=== PATIENT | male | born 1970 | race Caucasian/White ===

== ENCOUNTER 2022-04-03 12:27 | Emergency (ER) | payer SELFPAY ==
--- NOTE | 2022-04-03 14:10 | PC.NURSE ---
Went to check on pt who is now c/o SOB. VS: 124/77 84 HR 100% RA RR 18-20 Pt stated he has a history of several pneumothoraxes in the past and this feels like another one . Pt also stated he hasnt eaten in a few days, and he is reporting that his hands and feet feel tingly This RN told pt that as soon as a room is available, we would bring him back. Pt verbalized understanding.
[2022-04-03 16:02] VITALS: BP 0/0; PULSE 0; RESP 0; TEMP -17.7; TEMP 0; O2SAT 0
== END 2022-04-03 16:04 | disposition left against medical advice (07) ==
PROVIDERS: Emergency Provider Emergency Medicine
DX: R42 Dizziness and giddiness (principal); R10.9 Unspecified abdominal pain; Z53.21 Procedure and treatment not carried out due to patient leaving prior to being seen by health care provider
CPT/HCPCS: 99211